=== PATIENT | male | born 1950 | race African-American/Black ===

== ENCOUNTER 2019-01-25 08:21 | Day surgery (SDC) | payer OTHER, MEDICAID ==
[~2019-01-25] VITALS: Ht 180.3 cm; Wt 68.0 kg
[2019-01-25] MEDS ORDERED: LOSA50TA41 MT (08:46)
[2019-01-25] MEDS ORDERED: PRAV20TA57 MT (08:49)
[2019-01-25] MEDS ORDERED: ASPI-1158 MT (08:49)
[2019-01-25] MEDS ORDERED: CHOL40002 MT (08:49)
[2019-01-25] MEDS ORDERED: HYDR25TA MT (08:49)
[2019-01-25] MEDS ORDERED: OMEP20CA5 MT (08:49)
[2019-01-25] MEDS ORDERED: SODIUM CHLORIDE 0.45% 500 ML IV SCH (09:30)
[2019-01-25] MEDS ORDERED: LIDOCAINE HCL 1% 20ML VIAL (Pyxis) INJ ONE ×2 (10:18→11:04)
[2019-01-25] MEDS ORDERED: IODIXANOL 320MG/ML 200ML BOTTLE ONE (10:18)
[2019-01-25] MEDS ORDERED: FENTANYL CITRATE/PF 50MCG/ML 2ML VIAL ONE (10:30)
[2019-01-25] MEDS ORDERED: MIDAZOLAM HCL 2 MG/2 ML VIAL ONE (10:30)
[2019-01-25] MEDS ORDERED: IOHEXOL-300 100 ML BOTTLE ONE (10:43)
[2019-01-25] MEDS ORDERED: PROTAMINE SULFATE 10MG/ML VIAL 5ML IV ONE (11:21)
[2019-01-25] MEDS ORDERED: ATROPINE SULFATE 1MG/10ML SYR IV PRN (11:45)
[2019-01-25] MEDS ORDERED: ACETAMINOPHEN 325MG TABLET PO PRN (11:45)
[2019-01-25] MEDS ORDERED: ONDANSETRON HCL 4MG/2ML INJ IV PRN (11:45)
[2019-01-25] MEDS ORDERED: HEPARIN SODIUM 1,000 UNIT/1ML VIAL IV ONE (23:00)
== END 2019-01-25 18:00 | disposition home or self-care (01) ==
LOC: CCL 08:21
PROVIDERS: ATTEND Specialist
DX: I70.213 Atherosclerosis of native arteries of extremities with intermittent claudication, bilateral legs (principal); I74.3 Embolism and thrombosis of arteries of the lower extremities; I12.9 Hypertensive chronic kidney disease with stage 1 through stage 4 chronic kidney disease, or unspecified chronic kidney disease; N18.9 Chronic kidney disease, unspecified; J44.9 Chronic obstructive pulmonary disease, unspecified; F17.210 Nicotine dependence, cigarettes, uncomplicated; E78.5 Hyperlipidemia, unspecified; Z82.49 Family history of ischemic heart disease and other diseases of the circulatory system; Z79.899 Other long term (current) drug therapy; Z79.82 Long term (current) use of aspirin
CPT/HCPCS: 36246; 75630; 85347; 99152; 99153; C1760; C1769; C1887; C1893; C1894; J1644; J2250; J2720; J3010; J3490; Q9967; G0500